=== PATIENT | female | born 1975 | race Caucasian/White ===

== ENCOUNTER 2016-12-04 14:49 | Emergency (ER) | payer OTHER ==
[~2016-12-04] VITALS: Wt 71.0 kg
[~2016-12-04 14:49] MED LIST: CYCL-319 PO; DOCU-144 PO; HYDR-3498 PO; TOPI-25 PO; [UNRECOGNIZED DRUG - CODE] PO
[2016-12-04] MEDS ORDERED: SSD1C20 TOP (15:35)
[2016-12-04] MEDS ORDERED: CEPH500C PO (15:35)
[2016-12-04] MEDS ORDERED: SILVER SULFADIAZINE 1% 25 GM CR TOP ONE (16:00)
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
[2016-12-04 16:28] VITALS: BP 127/68; PULSE 79; RESP 20; TEMP 98.8
[2016-12-04] MEDS ORDERED: DIPHTH/TET/ACEL PERTUSS (ADULT) 0.5 ML VIAL IM* ONE (16:30)
== END 2016-12-04 16:45 | disposition home or self-care (01) ==
LOC: FTE 14:49
DX: T20.20XA Burn of second degree of head, face, and neck, unspecified site, initial encounter (principal); X10.2XXA Contact with fats and cooking oils, initial encounter; Y92.9 Unspecified place or not applicable; Z23 Encounter for immunization
CPT/HCPCS: 16000; 90471; Z7502; Z7610